=== PATIENT | female | born 1940 | race Caucasian/White ===

== ENCOUNTER 2025-09-12 07:08 | Inpatient (IN) | payer MEDICARE, MEDICAID, SELFPAY ==
[2025-09-12] VITALS (20 sets, daily range): BP systolic 123–194; BP diastolic 41–79; PULSE 67–90; RESP 14–21; TEMP 36.3–37.5; O2SAT 95–99; BMI 21.6
--- NOTE | 2025-09-12 07:33 | EKG_ITS ---
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
--- NOTE | 2025-09-12 07:33 | DI.CT.S_ITS ---
PROCEDURE: CT KIDNEY URETER BLADDER (KUB) INDICATIONS: flank pain, history of hydro and stent TECHNIQUE: Axial sections were acquired from the lung bases to the pubic symphysis. Coronal and sagittal reformats were performed. For radiation dose reduction, the following was used: automated exposure control, adjustment of mA and/or kV according to patient size. COMPARISON: None. FINDINGS: Image quality: Diagnostic. Lower Chest: No significant findings. URINARY: Right Kidney: Severe hydronephrosis. Punctate nonobstructing parenchymal stones. Right Ureter: The renal pelvis is severely dilated. There is a small amount of air present in the renal pelvis. There is inflammatory change in the adjacent fat. The ureter is dilated down to the level of the level of approximately S2-S3, where there is obstruction by a large stone measuring 2.0 x 0.7 x 1.0 cm. It has a Hounsfield measurement of 671. Left Kidney: Punctate nonobstructing stones, the largest of which is approximately 6 x 3 mm. It has a Hounsfield measurement of 457.5. No hydronephrosis. Left Ureter: No hydroureter. Bladder: Normal wall thickness. No stones. ABDOMEN: Liver: No contour-deforming solid mass. Gallbladder: Numerous gallstones are present in the gallbladder. No gallbladder wall thickening. Biliary ducts: No biliary dilation. Pancreas: No ductal dilation. Spleen: Size is within normal limits. Adrenal Glands: No adrenal nodules. Stomach and Bowel: Normal colonic caliber, without significant wall thickening. Severe sigmoid diverticulosis. No CT evidence of acute diverticulitis. Peritoneum: No abnormal intraperitoneal fluid. No free air. Ventral Wall: No hernia. Abdominal Nodes: No enlarged retroperitoneal or mesenteric lymph nodes. Vessels: Aorta and inferior vena cava are normal in size. PELVIS: Pelvic Organs: Uterus is surgically absent. No adnexal masses.. Pelvic Nodes: Unremarkable. Miscellaneous: No inguinal hernias are seen. Bones: Unremarkable. IMPRESSION: 1. A very large distal ureteral stone obstructs the right ureter resulting in severe right hydronephrosis. 2. There is a small amount of gas present in the right renal pelvis, potentially from recent instrumentation. Cannot exclude infection from a gas-forming organism. 3. Bilateral nephrolithiasis. 4. Cholelithiasis. 5. Severe diverticulosis. 6. Remote hysterectomy. Dictated by: Prem Momin M.D. on 09/12/2025 at 8:12 Approved by: Prem Momin M.D. on 09/12/2025 at 8:17
--- NOTE | 2025-09-12 07:36 | ED.FEMALEGU ---
HPI - Female Genitourinary General Chief complaint: Urogenital-Female Stated complaint: per daughter, obstruction of right kidney Time Seen by Provider: 09/12/25 07:24 History of Present Illness HPI Narrative: This is an 85-year-old female with a history of bilateral ureteral stones and hydronephrosis. She gets her urology care down at [facility] by Dr. Silvestre Baldwin. She has had bilateral lithotripsies has a history of right nephrostomy which has been removed and a ureteral stent that was placed 4 days ago. The ureteral stent came out last night. Today the patient is having nausea and vomiting. She is not having fevers she is not having flank pain. Daughter recognizes nausea and vomiting as consistent with previous ureteral obstruction. Patient not having urinary symptoms. The patient's daughter is a medical provider. 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 Breast cancer Surgical History (Updated 09/12/25 @ 14:33 by Yanni Quintero) History of hysterectomy History of lumpectomy Family History (Updated 09/12/25 @ 14:34 by Yanni Quintero) Father Lung cancer Heart attack Mother Stroke Exam Narrative Exam Narrative: Elderly female who is alert appears to be in no distress Normocephalic and atraumatic with dry oral mucosa Lungs are clear Heart sounds are normal Abdomen has normal bowel sounds soft and no CVAT Initial Vital Signs Initial Vital Signs: Vital Signs Pulse Rate 89 09/12/25 07:28 Pulse Oximetry 99 09/12/25 07:28 Course Orders Ordered: ED Orders 09/12/25 07:33 CT kidney ureter bladder (KUB) Stat EKG-12 Lead Stat 09/12/25 07:35 CBC Auto Diff [Complete Blood Count AUTO DIFF] Stat CMP [Comprehensive Metabolic Panel] Stat Lactate (Lactic Acid) Stat Lipase Stat 09/12/25 07:59 Blood Culture Stat 09/12/25 08:27 Consult to Urology Stat UA Complete [Urinalysis and Microscopic] Stat Urine Culture Stat Hydromorphone HCl (Hydromorphone Hcl 0.5 Mg/0.5 Ml Syringe) 0.5 mg IV Q2H PRN PRN Reason: Pain, Severe (7-10) Sodium Chloride (Normal Saline 0.9%) 1,000 mls @ 100 mls/hr IV CONT LUPE Last Admin: 09/12/25 10:16 Dose: 100 mls/hr Documented By: EB Naloxone HCl (Naloxone 0.4 Mg/Ml Vial) 0.2 mg IV Q2MIN PRN PRN Reason: Opiate Reversal Discontinued Medications Benzocaine (Benzocaine/Menthol 1 Gil Pkt) 1 each PO PRN PRN PRN Reason: Sore Throat Famotidine (Famotidine 20 Mg/2 Ml Vial) 20 mg IV NOW ONE Stop: 09/12/25 09:38 Last Admin: 09/12/25 10:50 Dose: 20 mg Documented By: IGOR Fentanyl (Fentanyl 100 Mcg/2 Ml Inj) 0 mcg IV Q5MIN PRN PRN Reason: Pain, Severe (7-10) Hydromorphone HCl (Hydromorphone 1 Mg/Ml Syringe) 0 mg IV Q5MIN PRN PRN Reason: Pain, Mild (1-3) Sodium Chloride (Normal Saline 0.9%) 1,000 mls @ 1,000 mls/hr IV BOLUS ONE Stop: 09/12/25 08:32 Last Infusion: 09/12/25 08:38 Dose: Infused Documented By: Admin: 09/12/25 07:49 Dose: 1,000 mls/hr Documented By: EB Piperacillin Sod/Tazobactam (Sod 4.5 gm/ Sodium Chloride) 100 mls @ 200 mls/hr IV NOW ONE Stop: 09/12/25 08:08 Last Infusion: 09/12/25 09:47 Dose: Infused Documented By: FLAl Admin: 09/12/25 09:10 Dose: 200 mls/hr Documented By: EB Vancomycin HCl/Dextrose (Vancomycin) 1,500 mg in 300 mls @ 200 mls/hr IV NOW ONE Stop: 09/12/25 09:48 Last Infusion: 09/12/25 12:58 Dose: Infused Documented By: Admin: 09/12/25 10:15 Dose: 200 mls/hr Documented By: EB Lactated Ringer's (Lactated Ringers) 1,000 mls @ 42 mls/hr IV CONT LUPE Last Infusion: 09/12/25 12:58 Dose: Infused Documented By: Admin: 09/12/25 10:51 Dose: 42 mls/hr Documented By: BS Acetaminophen (Ofirmev) 1,000 mg in 100 mls @ 400 mls/hr IV NOW ONE Stop: 09/12/25 09:51 Last Admin: 09/12/25 12:58 Dose: Not Given Documented By: LDV Acetaminophen (Ofirmev) 1,000 mg in 100 mls @ 400 mls/hr IV NOW ONE Stop: 09/12/25 11:14 Last Infusion: 09/12/25 12:51 Dose: Infused Documented By: Admin: 09/12/25 10:50 Dose: 400 mls/hr Documented By: BS Iopamidol (Iopamidol 30 Ml Vial) 10 ml INTRAURETH NOW ONE Stop: 09/12/25 10:47 Last Admin: 09/12/25 11:34 Dose: 10 ml Documented By: BB Ondansetron HCl (Ondansetron 4 Mg/2 Ml Inj) 4 mg IV NOW ONE Stop: 09/12/25 07:36 Last Admin: 09/12/25 07:50 Dose: 4 mg Documented By: EB Ondansetron HCl (Ondansetron 4 Mg/2 Ml Inj) 4 mg IV NOW PRN PRN Reason: Nausea And Vomiting Oxycodone HCl (Oxycodone Ir 5 Mg Tablet) 5 mg PO PACUNOW PRN PRN Reason: Mild or moderate pain Vancomycin HCl (Vancomycin Per Pharmacy) 1 request MISC NOW PRN PRN Reason: protocol Reevaluation(s) Reevaluation #1: At 9:30 a.m., daughter is in the room with the patient. I reviewed CT findings and concern for infection and need for a stent. Patient prefers to have this done here as opposed to going back to [place]. Patient agrees with the admission, she has been NPO today. Patient and daughter report that she is DNR Consultations Consultation #1: Case discussed with Urology, Dr. Sanchez, planning a repeat stent, will do this later today Consultation #2: Discussed with hospitalist, Dr. Mares accepts admission Vital Signs Vital signs: Vital Signs - 8 hr 09/12/25 08:30 09/12/25 08:30 Pulse Rate 87 Blood Pressure 173/72 H Pulse Oximetry 98 MDM - Female Genitourinary Lab Data Lab results narrative: She has a mild leukocytosis. Lactic acid normal. Creatinine is normal, urinalysis shows evidence of infection with pyuria present 09/12/25 07:35 09/12/25 07:35 Labs: Lab Results 09/12/25 09/12/25 Range/Units 07:35 08:27 WBC 15.1 H (4.5-11.0) X10^3/uL RBC 3.92 L (4.0-5.2) X10^6/uL Hgb 11.9 L (12.0-16.0) g/dL Hct 35.8 L (36-46) % MCV 91.4 (80-100) fL MCH 30.4 (26-34) PG MCHC 33.2 (30-36) % RDW 15.0 H (11.6-14.8) % Plt Count 486 H (150-400) X10^3/uL Neut % (Auto) 81.5 H (50-75) % Lymph % (Auto) 10.8 L (25-40) % [place] % (Auto) 5.4 (3-14) % Eos % (Auto) 1.3 L (2-4) % Baso % (Auto) 1.0 (0-2) % Neut # (Auto) 66782 H (6922-3665) /uL Lymph # (Auto) 1600 (7955-1696) /uL [place] # (Auto) 800 (0-900) /uL Eos # (Auto) 200 (0-450) /uL Baso # (Auto) 200 H (0-100) /uL Sodium 139 (137-145) mmol/L Potassium 3.7 (3.4-5.1) mmol/L Chloride 101 (98-107) mmol/L Carbon Dioxide 28 (22-32) mmol/L BUN 14 (7-17) mg/dL Creatinine 1.00 (0.52-1.04) mg/dL Estimated GFR 55 L (>60) mL/min BUN/Creatinine Ratio 14.0 (6-22) Glucose 132 H (70-99) mg/dL Lactate 1.5 (0.7-2.1) mmol/L Calcium 10.1 (8.4-10.2) mg/dL Total Bilirubin 0.9 (0.2-1.3) mg/dL AST 31 (14-36) IU/L ALT 21 (<35) IU/L Alkaline Phosphatase 129 H (38-126) U/L Total Protein 7.5 (6.3-8.2) g/dL Albumin 3.6 (3.5-5.0) g/dL Globulin 3.9 (1.7-4.1) g/dL Albumin/Globulin Ratio 0.9 L (1.0-2.8) Lipase 54 (23-300) U/L Urine Color Yellow Urine Appearance Clear Urine pH 7.5 (4.5-8.0) Ur Specific [place] 1.015 (1.000-1.035) Urine Protein Negative (Negative) Urine Glucose (UA) Negative (Negative) g/dL Urine Ketones Negative (NEGATIVE) Urine Occult Blood Trace-intact (Negative) Urine Nitrate Negative (Negative) Urine Bilirubin Negative (NEGATIVE) Urine Urobilinogen 0.2 (0.2) E.U./dL Ur Leukocyte Esterase Trace H (NEGATIVE) Urine RBC 0-1/hpf (0-5/HPF) Urine WBC 5-10/hpf H (0-5/HPF) Ur Squamous Epith Cells 0-1 /hpf (0-5/HPF) Urine Bacteria Few (2-10) H (None) Ur Culture Indicated? Specimen cultured Vol Urine Centrifuged 10ml (spun) Imaging Data CT scan - abdomen/pelvis: My Impression: CT KUB shows right hydronephrosis and a large stone in the distal right ureter Radiologist's Impression: [place] [address] CT Scan Report Signed Patient: Vidya Turner MR#: [id number] : 1940 Acct:[id number] Age/Sex: 85 / F Date of Service: 09/12/25 Loc: ED Accession Number: [id number] Procedure: CT kidney ureter bladder (KUB) Ordering Provider: Foster Lantigua MD PROCEDURE: CT KIDNEY URETER BLADDER (KUB) INDICATIONS: flank pain, history of hydro and stent TECHNIQUE: Axial sections were acquired from the lung bases to the pubic symphysis. Coronal and sagittal reformats were performed. For radiation dose reduction, the following was used: automated exposure control, adjustment of mA and/or kV according to patient size. COMPARISON: None. FINDINGS: Image quality: Diagnostic. Lower Chest: No significant findings. URINARY: Right Kidney: Severe hydronephrosis. Punctate nonobstructing parenchymal stones. Right Ureter: The renal pelvis is severely dilated. There is a small amount of air present in the renal pelvis. There is inflammatory change in the adjacent fat. The ureter is dilated down to the level of the level of approximately S2-S3, where there is obstruction by a large stone measuring 2.0 x 0.7 x 1.0 cm. It has a Hounsfield measurement of 671. Left Kidney: Punctate nonobstructing stones, the largest of which is approximately 6 x 3 mm. It has a Hounsfield measurement of 457.5. No hydronephrosis. Left Ureter: No hydroureter. Bladder: Normal wall thickness. No stones. ABDOMEN: Liver: No contour-deforming solid mass. Gallbladder: Numerous gallstones are present in the gallbladder. No gallbladder wall thickening. Biliary ducts: No biliary dilation. Pancreas: No ductal dilation. Spleen: Size is within normal limits. Adrenal Glands: No adrenal nodules. Stomach and Bowel: Normal colonic caliber, without significant wall thickening. Severe sigmoid diverticulosis. No CT evidence of acute diverticulitis. Peritoneum: No abnormal intraperitoneal fluid. No free air. Ventral Wall: No hernia. Abdominal Nodes: No enlarged retroperitoneal or mesenteric lymph nodes. Vessels: Aorta and inferior vena cava are normal in size. PELVIS: Pelvic Organs: Uterus is surgically absent. No adnexal masses.. Pelvic Nodes: Unremarkable. Miscellaneous: No inguinal hernias are seen. Bones: Unremarkable. IMPRESSION: 1. A very large distal ureteral stone obstructs the right ureter resulting in severe right hydronephrosis. 2. There is a small amount of gas present in the right renal pelvis, potentially from recent instrumentation. Cannot exclude infection from a gas-forming organism. 3. Bilateral nephrolithiasis. 4. Cholelithiasis. 5. Severe diverticulosis. 6. Remote hysterectomy. Dictated by: Prem Momin M.D. on 09/12/2025 at 8:12 Approved by: Prem Momin M.D. on 09/12/2025 at 8:17 ECG Data Attestation: I personally reviewed and interpreted this ECG as follows: (Normal sinus rhythm at 91 normal QRS duration normal QTC no acute ST segment changes, right bundle-branch) MDM Narrative Medical decision making narrative: 85-year-old female with ureteral stones and hydronephrosis recently had a right ureteral stent. Stent has come out, have persistent hydronephrosis and ureteral obstruction from a stone. She also has evidence of infection with pyuria and leukocytosis. Patient is nontoxic appearing at present, she was started on Zosyn and vancomycin urology was consulted and will see the patient shortly she will be admitted to the hospitalist service. Discharge Plan Departure Patient Disposition: Admitted As Inpatient Clinical Impression: Hydroureter with obstruction Urinary tract infection Qualifiers: Urinary tract infection type: site unspecified Hematuria presence: without hematuria Qualified Code(s): N39.0 - Urinary tract infection, site not specified Admit Date/Time: 09/12/25 08:43 Admit Provider: Dionicio Workman
[2025-09-12 07:43] LABS: Add Manual Diff / Slide Review NO; Hematocrit 35.8 % (36-46); Hemoglobin 11.9 g/dL (12.0-16.0); Lymphocytes Absolute Auto 1600 /uL (1100-4500); Mean Corpuscular HGB Conc 33.2 % (30-36); Mean Corpuscular Hemoglobin 30.4 PG (26-34); Mean Corpuscular Volume 91.4 fL (80-100); Platelet Count 486 X10^3/uL (150-400)
[2025-09-12] MEDS: SODIUM CHLORIDE 0.9% 1,000 ML 1000 ML IV (07:49)
[2025-09-12] MEDS: ONDANSETRON 4 MG/2 ML INJ IV (07:50)
[2025-09-12 07:58] LABS: Alanine Aminotransferase 21 IU/L (<35); Albumin 3.6 g/dL (3.5-5.0); Albumin Globulin Ratio 0.9 (1.0-2.8); Alkaline Phosphatase 129 U/L (38-126); Blood Urea Nitrogen 14 mg/dL (7-17); Calcium 10.1 mg/dL (8.4-10.2); Carbon Dioxide 28 mmol/L (22-32); Chloride 101 mmol/L (98-107); Estimated Glomerular Filt Rate 55 mL/min (>60); Globulin 3.9 g/dL (1.7-4.1); Glucose 132 mg/dL (70-99); HEMOLYSIS < 15 (0-50); Lipase 54 U/L (23-300); Potassium 3.7 mmol/L (3.4-5.1); Sodium 139 mmol/L (137-145); Total Protein 7.5 g/dL (6.3-8.2)
[2025-09-12 08:09] LABS: Lactate (Lactic Acid) 1.5 mmol/L (0.7-2.1)
[2025-09-12 08:34] LABS: Appearance Urine UA CLEAR; Bilirubin Urine UA NEGATIVE (NEGATIVE); Color Urine UA YELLOW; Glucose Urine UA NEGATIVE (Negative); Ketones Urine UA NEGATIVE (NEGATIVE); Leukocyte Esterase Urine UA TRACE (NEGATIVE); Nitrite Urine UA NEGATIVE (Negative); Occult Blood Urine UA TRACE-INTACT (Negative); Protein Urine UA NEGATIVE (Negative); Specific Gravity Urine UA 1.015 (1.000-1.035); Urobilinogen Urine UA 0.2 E.U./dL (0.2); pH Urine UA 7.5 (4.5-8.0)
[2025-09-12 08:46] LABS: Culture Indicated Urine Specimen Cultured
[2025-09-12] MEDS: PIPERACILLIN/TAZO 4.5 GM in SODIUM CHLORIDE 0.9% 100 ML IV (09:10)
--- NOTE | 2025-09-12 09:11 | P.HP_ITS ---
History of Present Illness <Dionicio Workman MD - Last Filed: 09/12/25 16:38> History of Present Illness Chief complaint: per daughter, obstruction of right kidney Narrative: CC: Nausea, vomiting, and concern for urinary obstruction ? HPI:? ? This is an 85-year-old female with a history of bilateral nephrolithiasis, chronic bilateral hydronephrosis, and prior ureteral stent placement, who presented to the ED with nausea and vomiting. She was afebrile and hemodynamically stable. CT KUB demonstrated a 2 cm distal right ureteral stone with resultant upstream severe hydronephrosis. She gets her urology care at [facility] by Dr. Silvestre Baldwin. She has had bilateral lithotripsies has a history of right nephrostomy which has been removed and a ureteral stent that was placed 4 days ago. The ureteral stent came out last night. Today the patient is having nausea and vomiting. Urology was consulted, and the patient underwent cystoscopy with right ureteral stent exchange and bladder decompression. She was then admitted post-operatively to the floor in stable condition for monitoring, continued management, and evaluation for definitive outpatient urologic care. ? History collected from patient's daughter Cynthia Méndez: This spring the patient started having nausea and weight loss causing concern for her daughter, who is a family medicine physician. She developed post prandial discomfort in June but declined to seek care. In early July she went to the ER at [facility] where she was discovered to have bilateral obstructing stones at 2 and 3 cm respectively. She had bilateral stents placed while awaiting laser ablation. The left stone was ablated in early August, then two weeks later the right stone was ablated. She continued to have severe nausea after the right ablation lasting until 09/05 when she was brought by EMS to the [facility] ED. She was found to have 8cm steinstrasse obstructing the right ureter. On 09/05 a nephrostomy was placed until ablation could be completed 09/09. The patient was discharged 09/10 and brought to [place] to stay with her daughter for recovery. The stent was accidentally removed on 09/11. On 09/12 the patient developed nausea and vomiting, which are her typical symptoms of ureteral obstruction, so she was brought to [facility] emergency room. ? 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 Surgical Hx: Hysterectomy, remote Lumpectomy ~2015 Cystoscopy, multiple Ureteral stent x4 Ureteral stone ablation x3 ? Medications: metoprolol 25mg, timolol eye drop Allergies: NKDA Social Hx: She lives alone in [place], no pets. 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 Social drinking. No other substance use reported. Family Hx:? Mother: Stroke, Father: [place], lung cancer ? ROS: negative other than as noted in HPI ? Imaging/EC/11 CT KIDNEY URETER BLADDER (KUB) IMPRESSION: 1. A very large distal ureteral stone obstructs the right ureter resulting in severe right hydronephrosis. 2. There is a small amount of gas present in the right renal pelvis, potentially from recent instrumentation. Cannot exclude infection from a gas-forming organism. 3. Bilateral nephrolithiasis. 4. Cholelithiasis. 5. Severe diverticulosis. 6. Remote hysterectomy. ? 09/12 ECG Interpretive Statements: Normal sinus rhythm Possible Left atrial enlargement Right bundle branch block ? Labs reviewed and notable for: -Blood culture and urine culture pending -High: WBC (15.1), platelets (486), BUN (26), BUN/Creatinine Ratio (21), Alkaline Phosphatase (138) -Low: Hemoglobin (11.9), lymphocytes % (10.8%), eGFR (55) -UA with trace LE, few (2-10) bacteria, WBC (5-10) ? Vitals reviewed and notable for: BP: 192/79, 173/72, 168/74, 153/71, 167/71, 156/74, 154/72, 150/77, 148/77. Other vitals WNL ? Physical Exam: GEN: Alert and oriented X4. No acute distress. Fluent speech. EYES: PERRLA, EOMI. HENT: Moist mucus membranes, no conjunctival injection or icterus. RESP: CTAB, unlabored breathing, no cyanosis appreciated. CV: No peripheral edema, unremarkable heart rate and rhythm. ABD: Soft, non-tender, non-distended, no palpable masses. EXT: No edema, clubbing or cyanosis. SKIN: No rashes or lesions. NEURO: No focal neurologic deficits, CN II-XII grossly intact. PSYCH: Cooperative, appropriate mood and affect. ? A/P: 85-year-old female with bilateral nephrolithiasis and chronic hydronephrosis presenting with nausea and vomiting following spontaneous ureteral stent dislodgement. CT imaging confirms 2 cm distal right ureteral stone with severe hydronephrosis. Patient underwent successful cystoscopy with right ureteral stent exchange and bladder decompression. She is now admitted for continued management and evaluation for definitive outpatient urologic care. ? #Ureteral Obstruction with Hydronephrosis Large 2 cm distal right ureteral stone causing severe hydronephrosis following stent dislodgement. Stent displacement occurs in 2.8% of cases with stents. Successful stent exchange performed to restore drainage. -Monitor urine output -Hydromorphone 0.5 mg IV Q2 PRN for pain management -Post-operative monitoring -Discharge planning with urology follow-up, patient and daughter indicate they prefer outpatient care with [facility] Urology ? #Hypertension Elevated blood pressures ranging 148-192 mmHg systolic. Currently on metoprolol 25mg. -Monitor blood pressure trends -Continue metoprolol 25mg ? DVT Prophylaxis: -SCDs ? Code Status: -DNR/DNI ? Disposition: Likely discharge to daughter's home tomorrow AJ Additional: No additional information to add to this note. The patient was doing well and anticipate discharge tomorrow. We will follow cultures. <Yanni Quintero - Last Filed: 09/12/25 15:05> History of Present Illness Narrative: CC: Nausea, vomiting, and concern for urinary obstruction ? HPI:? ? This is an 85-year-old female with a history of bilateral nephrolithiasis, chronic bilateral hydronephrosis, and prior ureteral stent placement, who presented to the ED with nausea and vomiting. She was afebrile and hemodynamically stable. CT KUB demonstrated a 2 cm distal right ureteral stone with resultant upstream severe hydronephrosis. She gets her urology care at [facility] by Dr. Silvestre Baldwin. She has had bilateral lithotripsies has a history of right nephrostomy which has been removed and a ureteral stent that was placed 4 days ago. The ureteral stent came out last night. Today the patient is having nausea and vomiting. Urology was consulted, and the patient underwent cystoscopy with right ureteral stent exchange and bladder decompression. She was then admitted post-operatively to the floor in stable condition for monitoring, continued management, and evaluation for definitive outpatient urologic care. ? History collected from patient's daughter Cynthia Méndez: This spring the patient started having nausea and weight loss causing concern for her daughter, who is a family medicine physician. She developed post prandial discomfort in June but declined to seek care. In early July she went to the ER at [facility] where she was discovered to have bilateral obstructing stones at 2 and 3 cm respectively. She had bilateral stents placed while awaiting laser ablation. The left stone was ablated in early August, then two weeks later the right stone was ablated. She continued to have severe nausea after the right ablation lasting until 09/05 when she was brought by EMS to the [facility] ED. She was found to have 8cm steinstrasse obstructing the right ureter. On 09/05 a nephrostomy was placed until ablation could be completed 09/09. The patient was discharged 09/10 and brought to [place] to stay with her daughter for recovery. The stent was accidentally removed on 09/11. On 09/12 the patient developed nausea and vomiting, which are her typical symptoms of ureteral obstruction, so she was brought to [facility] emergency room. ? 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 Surgical Hx: Hysterectomy, remote Lumpectomy ~2014 Cystoscopy, multiple Ureteral stent x4 Ureteral stone ablation x3 ? Medications: metoprolol 25mg, timolol eye drop Allergies: NKDA Social Hx: She lives alone in [place], no pets. 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 Social drinking. No other substance use reported. Family Hx:? Mother: Stroke, Father: [place], lung cancer ? ROS: negative other than as noted in HPI ? Imaging/EC/11 CT KIDNEY URETER BLADDER (KUB) IMPRESSION: 1. A very large distal ureteral stone obstructs the right ureter resulting in severe right hydronephrosis. 2. There is a small amount of gas present in the right renal pelvis, potentially from recent instrumentation. Cannot exclude infection from a gas-forming organism. 3. Bilateral nephrolithiasis. 4. Cholelithiasis. 5. Severe diverticulosis. 6. Remote hysterectomy. ? 09/12 ECG Interpretive Statements: Normal sinus rhythm Possible Left atrial enlargement Right bundle branch block ? Labs reviewed and notable for: -Blood culture and urine culture pending -High: WBC (15.1), platelets (486), BUN (26), BUN/Creatinine Ratio (21), Alkaline Phosphatase (138) -Low: Hemoglobin (11.9), lymphocytes % (10.8%), eGFR (55) -UA with trace LE, few (2-10) bacteria, WBC (5-10) ? Vitals reviewed and notable for: BP: 192/79, 173/72, 168/74, 153/71, 167/71, 156/74, 154/72, 150/77, 148/77. Other vitals WNL ? Physical Exam: GEN: Alert and oriented X4. No acute distress. Fluent speech. EYES: PERRLA, EOMI. HENT: Moist mucus membranes, no conjunctival injection or icterus. RESP: CTAB, unlabored breathing, no cyanosis appreciated. CV: No peripheral edema, unremarkable heart rate and rhythm. ABD: Soft, non-tender, non-distended, no palpable masses. EXT: No edema, clubbing or cyanosis. SKIN: No rashes or lesions. NEURO: No focal neurologic deficits, CN II-XII grossly intact. PSYCH: Cooperative, appropriate mood and affect. ? A/P: 85-year-old female with bilateral nephrolithiasis and chronic hydronephrosis presenting with nausea and vomiting following spontaneous ureteral stent dislodgement. CT imaging confirms 2 cm distal right ureteral stone with severe hydronephrosis. Patient underwent successful cystoscopy with right ureteral stent exchange and bladder decompression. She is now admitted for continued management and evaluation for definitive outpatient urologic care. ? #Ureteral Obstruction with Hydronephrosis Large 2 cm distal right ureteral stone causing severe hydronephrosis following stent dislodgement. Stent displacement occurs in 2.8% of cases with stents. Successful stent exchange performed to restore drainage. -Monitor urine output -Hydromorphone 0.5 mg IV Q2 PRN for pain management -Post-operative monitoring -Discharge planning with urology follow-up, patient and daughter indicate they prefer outpatient care with [facility] Urology ? #Hypertension Elevated blood pressures ranging 148-192 mmHg systolic. Currently on metoprolol 25mg. -Monitor blood pressure trends -Continue metoprolol 25mg ? DVT Prophylaxis: -SCDs ? Code Status: -DNR/DNI ? 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 Breast cancer Surgical History (Updated 09/12/25 @ 14:33 by Yanni Quintero) History of hysterectomy History of lumpectomy Family History (Updated 09/12/25 @ 14:34 by Yanni Quintero) Father Lung cancer Heart attack Mother Stroke Social History (Updated 09/12/25 @ 14:36 by Yanni Quintero) household members: none lives independently: Yes pets and animals: No Smoking Status: Former smoker Meds <Dionicio Workman MD - Last Filed: 09/12/25 16:38> Home Medications and Allergies Home Medications ?Medication ?Instructions ?Recorded ?Confirmed ?Type metoprolol succinate 25 mg 25 mg PO DAILY 09/12/2509/26 History tablet,extended release 24 hr timolol maleate 0.5 % eye drops drp EYE-BOTH 09/12/25 History Allergies Allergy/AdvReac Type Severity Reaction Status Date / Time No Known Drug Allergies Allergy Verified 09/12/25 10:34 Exam <Dionicio Workman MD - Last Filed: 09/12/25 16:38> Vital Signs (past 8 hours): - 09/12/25 07:28 09/12/25 07:30 09/12/25 07:37 Temperature 97.5 F L Pulse Rate 89 90 86 Respiratory Rate 18 Blood Pressure 194/79 H Pulse Oximetry 99 99 99 Oxygen Delivery Method Room Air 09/12/25 07:50 09/12/25 07:50 09/12/25 08:00 Temperature Pulse Rate 84 83 Respiratory Rate Blood Pressure 190/79 H Pulse Oximetry 98 99 Oxygen Delivery Method 09/12/25 08:00 Temperature Pulse Rate Respiratory Rate Blood Pressure 192/79 H Pulse Oximetry Oxygen Delivery Method Oxygen Delivery Method Room Air Objective <Dionicio Workman MD - Last Filed: 09/12/25 16:38> Labs 09/12/25 07:35 09/12/25 07:35 Labs: Laboratory Results - last 24 hr 09/12/25 09/12/25 07:35 08:27 WBC 15.1 H RBC 3.92 L Hgb 11.9 L Hct 35.8 L MCV 91.4 MCH 30.4 MCHC 33.2 RDW 15.0 H Plt Count 486 H Neut % (Auto) 81.5 H Lymph % (Auto) 10.8 L [place] % (Auto) 5.4 Eos % (Auto) 1.3 L Baso % (Auto) 1.0 Neut # (Auto) 98790 H Lymph # (Auto) 1600 [place] # (Auto) 800 Eos # (Auto) 200 Baso # (Auto) 200 H Sodium 139 Potassium 3.7 Chloride 101 Carbon Dioxide 28 BUN 14 Creatinine 1.00 Estimated GFR 55 L BUN/Creatinine Ratio 14.0 Glucose 132 H Lactate 1.5 Calcium 10.1 Total Bilirubin 0.9 AST 31 ALT 21 Alkaline Phosphatase 129 H Total Protein 7.5 Albumin 3.6 Globulin 3.9 Albumin/Globulin Ratio 0.9 L Lipase 54 Urine Color Yellow Urine Appearance Clear Urine pH 7.5 Ur Specific [place] 1.015 Urine Protein Negative Urine Glucose (UA) Negative Urine Ketones Negative Urine Occult Blood Trace-intact Urine Nitrate Negative Urine Bilirubin Negative Urine Urobilinogen 0.2 Ur Leukocyte Esterase Trace H Urine RBC 0-1/hpf Urine WBC 5-10/hpf H Ur Squamous Epith Cells 0-1 /hpf Urine Bacteria Few (2-10) H Ur Culture Indicated? Specimen cultured Vol Urine Centrifuged 10ml (spun) Assessment & Plan <Dionicio Workman MD - Last Filed: 09/12/25 16:38> Time-Based Coding :: 35 min spent with patient and on the chart (including review of chart, obtaining history, exam, reviewing outside data, placing orders, documenting exam and treatment plan, and counseling patient) on 09/12. Quality <Dionicio Workman MD - Last Filed: 09/12/25 16:38> MIPS - Admit I confirm the patient?s Advance Care Plan is present, Code status is documented, Surrogate decision maker is in patient?s record [If Yes, STOP here]: Yes MIPS - Meds 'Current medications' to include all prescriptions, [id number] products, herbals, cannabis/cannabidiol products, and vitamin/mineral/dietary (nutritional) supplements. I have utilized all available resources to obtain, update, or review the patient?s current medications. [If Yes, STOP here]: Yes
[2025-09-12] MEDS: VANCOMYCIN 1,500 MG/300 ML PIGGYBACK 200 MG IV (10:15)
[2025-09-12] MEDS: SODIUM CHLORIDE 0.9% 1,000 ML 100 ML IV (10:16)
--- NOTE | 2025-09-12 10:38 | P.CONS_ITS ---
History of Present Illness Consult details Date Patient Seen: 09/12/25 Time Patient Seen: 10:38 Chief complaint: per daughter, obstruction of right kidney Reason for consult: Severe right hydroureteronephrosis, right ureteral stone, UTI Narrative: 85 y/o F brought into ER by daughter for evaluation of nausea/vomiting. Of note, she recently underwent bilateral urolithiasis management at [facility] in [place], [place] (do not have any of these records, unsure if this was URS or ESWL). Nevertheless, she admits to a history of a right nephrostomy tube within the last month as well as a right ureteral stent placement. The stent was left on strings and was inadvertently removed early. Her daughter felt that her symptoms were similar to prior episodes of ureteral obstruction and brought her into ER for further evaluation. This was notable for a WBC of 15.1, sCr of 1 and a UA consistent with either recent Urological instrumentation or concern for a UTI. Her CT KUB was notable for a 2cm distal right ureterolith with resultant upstream severe hydroureteronephrosis and gas within her right renal pelvis. Urology was consulted for further management. Meds Home Medications and Allergies Home Medications ?Medication ?Instructions ?Recorded ?Confirmed ?Type timolol maleate 0.5 % eye drops drp EYE-BOTH 09/12/25 History Allergies Allergy/AdvReac Type Severity Reaction Status Date / Time No Known Drug Allergies Allergy Verified 09/12/25 10:34 Review of Systems Review of Systems Narrative: A complete ROS was completed with all pertinent positives and negatives documented in HPI. All other systems were reviewed and are negative. Exam Vital Signs (past 8 hours): - 09/12/25 07:28 09/12/25 07:30 09/12/25 07:37 Temperature 97.5 F L Pulse Rate 89 90 86 Respiratory Rate 18 Blood Pressure 194/79 H Pulse Oximetry 99 99 99 Oxygen Delivery Method Room Air 09/12/25 07:50 09/12/25 07:50 09/12/25 08:00 Temperature Pulse Rate 84 83 Respiratory Rate Blood Pressure 190/79 H Pulse Oximetry 98 99 Oxygen Delivery Method 09/12/25 08:00 09/12/25 08:30 09/12/25 08:30 Temperature Pulse Rate 87 Respiratory Rate Blood Pressure 192/79 H 173/72 H Pulse Oximetry 98 Oxygen Delivery Method 09/12/25 09:00 09/12/25 09:00 09/12/25 09:30 Temperature Pulse Rate 81 Respiratory Rate 21 Blood Pressure 168/74 H 153/71 H Pulse Oximetry Oxygen Delivery Method 09/12/25 09:30 09/12/25 10:00 09/12/25 10:00 Temperature Pulse Rate 82 80 Respiratory Rate 21 20 Blood Pressure 167/71 H Pulse Oximetry 97 95 Oxygen Delivery Method Oxygen Delivery Method Room Air Narrative Exam Narrative: GEN: Alert and oriented X3. No acute distress. Well-nourished. EYES: PERRLA, EOMI. HENT: Moist mucus membranes, no scleral icterus, normal neck ROM. RESP: Unlabored breathing, equal rise and fall of chest bilaterally, no cyanosis appreciated. CV: No peripheral edema, unremarkable heart rate. ABD: Soft, non-tender, non-distended, no palpable masses. EXT: No edema, clubbing or cyanosis. SKIN: No rashes or lesions. NEURO: No focal neurologic deficits, CN II-XII grossly intact. PSYCH: Cooperative, appropriate mood and affect. Objective Labs 09/12/25 07:35 09/12/25 07:35 Labs: Laboratory Results - last 24 hr 09/12/25 09/12/25 07:35 08:27 WBC 15.1 H RBC 3.92 L Hgb 11.9 L Hct 35.8 L MCV 91.4 MCH 30.4 MCHC 33.2 RDW 15.0 H Plt Count 486 H Neut % (Auto) 81.5 H Lymph % (Auto) 10.8 L [place] % (Auto) 5.4 Eos % (Auto) 1.3 L Baso % (Auto) 1.0 Neut # (Auto) 09914 H Lymph # (Auto) 1600 [place] # (Auto) 800 Eos # (Auto) 200 Baso # (Auto) 200 H Sodium 139 Potassium 3.7 Chloride 101 Carbon Dioxide 28 BUN 14 Creatinine 1.00 Estimated GFR 55 L BUN/Creatinine Ratio 14.0 Glucose 132 H Lactate 1.5 Calcium 10.1 Total Bilirubin 0.9 AST 31 ALT 21 Alkaline Phosphatase 129 H Total Protein 7.5 Albumin 3.6 Globulin 3.9 Albumin/Globulin Ratio 0.9 L Lipase 54 Urine Color Yellow Urine Appearance Clear Urine pH 7.5 Ur Specific [place] 1.015 Urine Protein Negative Urine Glucose (UA) Negative Urine Ketones Negative Urine Occult Blood Trace-intact Urine Nitrate Negative Urine Bilirubin Negative Urine Urobilinogen 0.2 Ur Leukocyte Esterase Trace H Urine RBC 0-1/hpf Urine WBC 5-10/hpf H Ur Squamous Epith Cells 0-1 /hpf Urine Bacteria Few (2-10) H Ur Culture Indicated? Specimen cultured Vol Urine Centrifuged 10ml (spun) Assessment & Plan Assessment and plan (1) Right ureteral calculus: Status: Acute Plan: 85 y/o F w/ h/o nephrolithiasis and recent Urological surgeries for management of her urolithiasis (this was performed at [facility] in [place], [place], do not have any of these records, not sure if URS or ESWL). Nevertheless, her right ureteral stent with strings was inadvertently removed early and she developed severe nausea/vomiting. She was brought to ER for evaluation by her daughter. This was notable for a WBC of 15.1, sCr of 1 and a UA consistent with either recent Urological instrumentation or concern for a UTI. Her CT KUB was notable for a 2cm distal right ureterolith with resultant upstream severe hydroureteronephrosis and gas within her right renal pelvis. Discussed the need for an urgent cystoscopy with right ureteral stent placement. Discussed risks of the procedure to include but not limited to pain, bleeding, infection, injury to urethra/bladder/ureter, inability to access the ureter requiring discussion with Interventional Radiology regarding a possible ureteral stent placement in an antegrade fashion vs a possible nephroureteral stent and/or percutaneous nephrostomy tube, urinary tract infection, need for emergent open repair of bladder and/or ureter. She indicated understanding and informed consent was obtained. - Appreciate assistance of hospitalist team in management of this patient - Will need to have stent remain for 2-3 weeks prior to returning to OR for a cystoscopy with right ureteroscopy, laser lithotripsy and right ureteral stent placement (may be performed at [facility] per patient's wishes) (2) Hydroureteronephrosis: Status: Acute Plan: Please see plan above (3) Urinary tract infection: Qualifiers: Hematuria presence: without hematuria Urinary tract infection type: s ite unspecified Qualified Code(s): N39.0 - Urinary tract infection, site not specified Status: Acute Plan: Please see plan above Time-Based Coding :: [TOTAL MINUTES] spent with patient and on the chart (including review of chart, obtaining history, exam, reviewing outside data, placing orders, documenting exam and treatment plan, and counseling patient) on [DATE]. PROFEE Charge Codes Inpatient or Observation consultation: [id number]
--- NOTE | 2025-09-12 10:44 | SUR.OPER ---
Lithotomy on padded OR bed, head on pillow, arms secured on padded arm boards at <90 degrees abduction. Legs secured in padded yellow fins stirrups. FINAL POSITIONING APPROVED BY PROVIDER
[2025-09-12] MEDS: ACETAMINOPHEN IV 1,000 MG/100 ML VIAL 400 MG IV (10:50)
[2025-09-12] MEDS: FAMOTIDINE 20 MG/2 ML VIAL IV (10:50)
[2025-09-12] MEDS: LACTATED RINGERS 1,000 ML 42 ML IV (10:51)
--- NOTE | 2025-09-12 11:59 | DI.RAD.S_ITS ---
PROCEDURE: XR ABDOMEN 1V INDICATIONS: RIGHT STENT PLACEMENT TECHNIQUE: 2 intra-operative images acquired by the Urology service. COMPARISON: [facility], CT, CT KIDNEY URETER BLADDER (KUB), 09/12/2025, 7:46. FINDINGS: Intraoperative fluoroscopic images shows presence of a right-sided ureteral stent. Moderate contrast distension of right renal collecting system is also seen. IMPRESSION: Fluoro guidance was provided intraoperatively for right-sided ureteral stent placement performed by ordering clinician. Dictated by: Miles Martinez M.D. on 09/12/2025 at 12:12 Approved by: Miles Martinez M.D. on 09/12/2025 at 12:13
--- NOTE | 2025-09-12 12:02 | P.OP_ITS ---
Operative Date/Time/Diagnoses Date of procedure: 09/12/25 Time of procedure: :25 Pre-op diagnosis: Right ureteral stone, urinary tract infection Post-op diagnosis: same Procedure & Clinicians Procedure: Cystoscopy Right retrograde ureteropyelogram Right ureteral stent placement Same procedure(s) as scheduled: Yes Indications: 85 y/o F w/ h/o nephrolithiasis and recent Urological surgeries for management of her urolithiasis (this was performed at [facility] in [place], [place], do not have any of these records, not sure if URS or ESWL). Nevertheless, her right ureteral stent with strings was inadvertently removed early and she developed severe nausea/vomiting. She was brought to ER for evaluation by her daughter. This was notable for a WBC of 15.1, sCr of 1 and a UA consistent with either recent Urological instrumentation or concern for a UTI. Her CT KUB was notable for a 2cm distal right ureterolith with resultant upstream severe hydroureteronephrosis and gas within her right renal pelvis. Discussed the need for an urgent cystoscopy with right ureteral stent placement. Discussed risks of the procedure to include but not limited to pain, bleeding, infection, injury to urethra/bladder/ureter, inability to access the ureter requiring discussion with Interventional Radiology regarding a possible ureteral stent placement in an antegrade fashion vs a possible nephroureteral stent and/or percutaneous nephrostomy tube, urinary tract infection, need for emergent open repair of bladder and/or ureter. She indicated understanding and informed consent was obtained. Surgeon: Anthony Sanchez Assisted?: No Anesthesia Type: General Operative Notes Findings: Very large distal right ureterolith with resultant upstream severe hydroureteronephrosis Closure Type: not applicable Specimen(s): none sent Applied: catheter Estimated Blood Loss (mL): 2 Blood products transfused: none Procedure in detail: Patient was identified in the preoperative holding area and consent confirmed. She was then brought to the operating room where general anesthesia was induced.? She was then placed in the low lithotomy position. She was then prepped and draped in the usual sterile fashion. A surgical timeout was conducted and all were in agreement. Access to the bladder was obtained via a 21Fr cystoscope.? Cloudy urine was immediately noted within the bladder.? The right ureteral orifice was easily visualized and a 0.035 sensor tip ureteral guidewire was advanced through the 5Fr ureteral catheter and into the right renal collecting system.? The ureteral guidewire was removed and a retrograde pyelogram was performed which noted severe right hydronephrosis.? The ureteral guidewire was readvanced through the ureteral catheter and into the right renal pelvis.? The ureteral catheter was then removed.? A 6Fr multi-length JJ ureteral stent without strings was then advanced over the ureteral guidewire and into the right renal collecting system.? Upon removal of the ureteral guidewire, a good curl was appreciated within the right renal pelvis upon fluoroscopy and visually within the bladder.? The bladder was then drained and the cystoscope was removed.? Anesthesia was reversed, she was extubated in the OR and transferred to the PACU in stable condition for recovery. Complications: none Post-operative Condition: stable Disposition: Acute Care Plan for aftercare: Transfer back to Acute Care with the hospitalist service. Will need definitive stone management either with [facility] or [facility].
--- NOTE | 2025-09-12 23:57 | PC.NURSE ---
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 RN reassured patient that they are at [facility] and in a safe environment, RN was able to re-orient patient to place and situation. RN administered PO ativan Per EMAR and patient home medication list.
[2025-09-13 01:00] VITALS: BP 153/67; PULSE 76; RESP 18; TEMP 36.3; O2SAT 97
--- NOTE | 2025-09-13 02:37 | PC.NURSE ---
Addendum entered by Emory Hernández RN 09/13/25 04:13: Patient is still agitated, waking up and attempting to get out of bed every 7-10 minutes. Addendum entered by Emory Hernández RN 09/13/25 03:59: Dr Crisostomo ordered 5mg IM of zyprexa, Patient tolerated well, (view EMAR for times) patient is currently asleep. 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 Patient has moments of 2-3 minutes of calm but will immediately attempt to remove Valdovinos and get out of bed. Addendum entered by Emory Henrández RN 09/13/25 03:09: Adam Crisostomo, gave verbal order to pause IVF, and cardiac telemetry , poultry process worker aware, Patient is still agitated, RN will update PRN if agitation continues to escalate. 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 patient attempted to remove valdovinos, and IV, patient removed cardiac telemetry. poultry process worker aware and MD notified.
[2025-09-13] MEDS: OLANZapine 10 MG VIAL 5 MG IM (03:34)
--- NOTE | 2025-09-13 09:02 | P.PN_ITS ---
Subjective Subjective Interval history: S: She states she remembers me but is minimally communicating. She was somewhat anxious in appearance. Overnight events: She has become confused, consistent with delirium. O: VSS. Confused, anxious. NAD, alert and oriented. Fluent speech. Lungs are clear, normal rate and effort. Heart is regular, no murmur gallop or rub. Abdomen is soft, non distended. Extremities are free of edema. Mendenhall MICRO: Blood and urine cultures remained negative. Imaging/EC/11 CT KIDNEY URETER BLADDER (KUB) IMPRESSION: 1. A very large distal ureteral stone obstructs the right ureter resulting in severe right hydronephrosis. 2. There is a small amount of gas present in the right renal pelvis, potentially from recent instrumentation. Cannot exclude infection from a gas-forming organism. 3. Bilateral nephrolithiasis. 4. Cholelithiasis. 5. Severe diverticulosis. 6. Remote hysterectomy. ? 09/12 ECG Interpretive Statements: Normal sinus rhythm Possible Left atrial enlargement Right bundle branch block ? A/P: 1. Acute metabolic encephalopathy, new and active. Likely added to her acute events, hospital encounter, and change in environment. 2. Ureteral Obstruction with Hydronephrosis, improved with stenting. Large 2 cm distal right ureteral stone causing severe hydronephrosis following stent dislodgement. Stent displacement occurs in 2.8% of cases with stents. Successful stent exchange performed to restore drainage. -Monitor urine output ? 3. Hypertension Elevated blood pressures ranging 148-192 mmHg systolic. Currently on metoprolol 25mg. -Monitor blood pressure trends -Continue metoprolol 25mg Discharge plan will depend on her mental status and delirium. We will attempt to open blinds, reinforce orientation and see how she does want her daughter arrives. ? 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 Breast cancer Surgical History (Updated 09/12/25 @ 14:33 by Yanni Quintero) History of hysterectomy History of lumpectomy Family History (Updated 09/12/25 @ 14:34 by Yanni Quintero) Father Lung cancer Heart attack Mother Stroke Social History (Updated 09/12/25 @ 14:36 by Yanni Quintero) household members: none lives independently: Yes pets and animals: No Smoking Status: Former smoker Assessment & Plan Time-Based Coding :: [TOTAL MINUTES] spent with patient and on the chart (including review of chart, obtaining history, exam, reviewing outside data, placing orders, documenting exam and treatment plan, and counseling patient) on [DATE]. Quality VTE Deep Vein Thrombosis/Pulmonary Embolism Present on Admission: No
--- NOTE | 2025-09-13 09:28 | PC.NURSE ---
Day shift: Pt confused this AM. Wanting to get OOB and can get OOB if not assisted and reoriented to situation.. Not allowing staff to put gown on (has no clothes on). Bed alarm is on. Call light in reach and door to room open. Pt is in view room for safety. Dr Workman is aware of Pt's confusing. Abdirashid remains patent.
--- NOTE | 2025-09-13 11:52 | PM.DS.1 ---
History of Present Illness History of Present Illness Chief complaint: per daughter, obstruction of right kidney Narrative: CC: Nausea, vomiting, and concern for urinary obstruction ? HPI:? ? This is an 85-year-old female with a history of bilateral nephrolithiasis, chronic bilateral hydronephrosis, and prior ureteral stent placement, who presented to the ED with nausea and vomiting. She was afebrile and hemodynamically stable. CT KUB demonstrated a 2 cm distal right ureteral stone with resultant upstream severe hydronephrosis. She gets her urology care at [facility] by Dr. Silvestre Baldwin. She has had bilateral lithotripsies has a history of right nephrostomy which has been removed and a ureteral stent that was placed 4 days ago. The ureteral stent came out last night. Today the patient is having nausea and vomiting. Urology was consulted, and the patient underwent cystoscopy with right ureteral stent exchange and bladder decompression. She was then admitted post-operatively to the floor in stable condition for monitoring, continued management, and evaluation for definitive outpatient urologic care. ? History collected from patient's daughter Cynthia Méndez: This spring the patient started having nausea and weight loss causing concern for her daughter, who is a family medicine physician. She developed post prandial discomfort in June but declined to seek care. In early July she went to the ER at [facility] where she was discovered to have bilateral obstructing stones at 2 and 3 cm respectively. She had bilateral stents placed while awaiting laser ablation. The left stone was ablated in early August, then two weeks later the right stone was ablated. She continued to have severe nausea after the right ablation lasting until 09/05 when she was brought by EMS to the [facility] ED. She was found to have 8cm steinstrasse obstructing the right ureter. On 09/05 a nephrostomy was placed until ablation could be completed 09/09. The patient was discharged 09/10 and brought to [place] to stay with her daughter for recovery. The stent was accidentally removed on 09/11. On 09/12 the patient developed nausea and vomiting, which are her typical symptoms of ureteral obstruction, so she was brought to [facility] emergency room. ? 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 Surgical Hx: Hysterectomy, remote Lumpectomy ~2014 Cystoscopy, multiple Ureteral stent x4 Ureteral stone ablation x3 ? Medications: metoprolol 25mg, timolol eye drop Allergies: NKDA Social Hx: She lives alone in [place], no pets. 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 Social drinking. No other substance use reported. Family Hx:? Mother: Stroke, Father: [place], lung cancer ? ROS: negative other than as noted in HPI ? Imaging/EC/11 CT KIDNEY URETER BLADDER (KUB) IMPRESSION: 1. A very large distal ureteral stone obstructs the right ureter resulting in severe right hydronephrosis. 2. There is a small amount of gas present in the right renal pelvis, potentially from recent instrumentation. Cannot exclude infection from a gas-forming organism. 3. Bilateral nephrolithiasis. 4. Cholelithiasis. 5. Severe diverticulosis. 6. Remote hysterectomy. ? 09/12 ECG Interpretive Statements: Normal sinus rhythm Possible Left atrial enlargement Right bundle branch block ? Labs reviewed and notable for: -Blood culture and urine culture pending -High: WBC (15.1), platelets (486), BUN (26), BUN/Creatinine Ratio (21), Alkaline Phosphatase (138) -Low: Hemoglobin (11.9), lymphocytes % (10.8%), eGFR (55) -UA with trace LE, few (2-10) bacteria, WBC (5-10) ? ? A/P: 85-year-old female with bilateral nephrolithiasis and chronic hydronephrosis presenting with nausea and vomiting following spontaneous ureteral stent dislodgement. CT imaging confirms 2 cm distal right ureteral stone with severe hydronephrosis. Patient underwent successful cystoscopy with right ureteral stent exchange and bladder decompression. She is now admitted for continued management and evaluation for definitive outpatient urologic care. ? 1. Ureteral Obstruction with Hydronephrosis (stented), improved. Large 2 cm distal right ureteral stone causing severe hydronephrosis following stent dislodgement. Stent displacement occurs in 2.8% of cases with stents. Successful stent exchange performed to restore drainage. -Monitor urine output -Hydromorphone 0.5 mg IV Q2 PRN for pain management -Post-operative monitoring -Discharge planning with urology follow-up, patient and daughter indicate they prefer outpatient care with [facility] ? 2. Hypertension, stable. Elevated blood pressures ranging 148-192 mmHg systolic. Currently on metoprolol 25mg. -Monitor blood pressure trends -Continue metoprolol 25mg 3. Mild metabolic encephalopathy, new and active. ? DVT Prophylaxis: -SCDs. ? Code Status: -DNR/DNI. ? Hospital Course: She did well after the procedure. She did develop some delirium overnight but her daughter was comfortable taking her home on the day of discharge. There was no evidence of infection, no fever or pain. A follow up with [facility] and this will be expedited for further care. Mendenhall removed before discharge. DC MIPS [N], the patient has documentation of a left ventricle ejection fracture less than or equal to 40%, or moderately or severely reduced left ventricle systolic function. [N], the patient has a history of heart transplant or left ventricular assist device (LVAD). [N], the patient was prescribed an LACY inhibitor at discharge or is already being taken. The patient was not prescribed an LACY-inhibitor because of the following exception: NA. [N], the patient was prescribed Metoprolol succinate, bisoprolol, or carvedilol at discharge. The patient was not prescribed Metoprolol succinate, bisoprolol, or carvedilol at discharge because of the following exception: NA. Discharge Providers Provider Date of admission: 09/12/25 08:43 Discharge Date: 09/13/25 Consults: 09/12/25 08:27 Consult to Urology Stat Comment: Consulting Provider: Anthony Sanchez Reason for consultation: r hydro and stone Has provider been notified: Yes Discharge provider: Dionicio Workman MD Summary Hospital Course Discharge Diagnosis: 1. Nephrolithiasis and ureteral obstruction. Hospital Course: See above. Status at Discharge Cognitive/behavioral status at discharge: confused Functional status at discharge: independent ambulation Overall status at discharge: patient is progressing back to baseline Time Spent with Patient Time spent: Greater than 30 minutes Exam Vital Signs (past 8 hours): Oxygen Delivery Method Room Air Oxygen Flow Rate 0 Narrative Exam Narrative: NAD, mild confusion. Lungs clear CV regular. Abdomen soft, NT. No edema. 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 Close FU with [facility] (Dr. Sanchez). Discharge Plan Discharge Plan Patient Disposition: Home Provider Discharge Comment: Stable for discharge home, met with daughter he was comfortable taking her home. Discharge orders & Medications Prescriptions: Continued timolol maleate 0.5 % drops EYE-BOTH metoprolol succinate 25 mg tablet extended release 24 hr 25 mg PO DAILY Diet/Activity/Treatments Diet: Regular Activity: As tolerated. Skin/Wound/Dressing Care Report to your healthcare provider any signs of infection, such as:: chills, fever, night sweats and increased pain Visit Report/Discharge Packet Instructions: Kidney Stones -- Adult, DI for Cystoscopy, How to Care for Your Mendenhall Catheter -- Female Stand Alone Forms: Patient Portal/API Quality VTE Deep Vein Thrombosis/Pulmonary Embolism Present on Admission: No
--- NOTE | 2025-09-13 12:52 | CM.DANOTE ---
DCP Assessment note pt is an 85yo F here after emergent stent placement yesterday with urology. hx of kidney obstruction. per chart review/RN, had a rough night. was oriented only to self occasionally. OOB with nursing. per provider, can dc home today if family agrees to take her home. MIXER AND SCALER met with dtr in room. pt sleeeping. dtr reports she recently moved pt from [place] to [facility] to live with her. has her own MIL appt spce in their house. ambulates indep but has a walker if needed. recent cog decline over past few months. looking for more permanent LTC plan- denies LTC planning resources from this MIXER AND SCALER. wants new PCP with Dr. yWatt- MIXER AND SCALER messaged TCM with updates. dtr manages most IADLs/ADLs for pt at this time. interested in HH once established with PCP. no hx of HH so far. wants all urology f/u to be done here and not with [facility] like done before. denies other DCP/CM questions at this time. MIXER AND SCALER updated provider on dtrs preference to take pt home. P: anticipate dc today with OP f/u. no further CM needs at this time. will continue to follow in case any should arise HALLIE [place]uma Discharge Planning/Care Management CM Discharge Assessment Start: 09/12/25 08:49 Freq: Status: Active Protocol: Document 09/13/25 12:50 SL (Rec: 09/13/25 12:51 SL [id number]) Discharge Planning Assessment Assigned Discharge HALLIE Ruiz Lacrosse Coach Provider none Insurance Medicaid,Medicare DPOA/Assigned Cynthia, dtr Designee Name Contact Information [phone] Advance Directives? No History Provided By Patient Prior Living Apartment/Condo Arrangements Household Members family,children Type of Relies on Others transporation used prior to admit Independent with ADL No 's Is patient alert and No oriented? DME Already Rented / FWW / Walker Owned Discharge Plan Home Referrals Initiated None needed Whiteboard Updated Yes in Patient Room with name and ext. # of Sales Enablement Consultant Review Status In Process Please Provide Date 09/13/25 Initial DC Assessment Was Performed Next Review Type Continued Stay Review
--- NOTE | 2025-09-13 13:29 | PC.NURSE ---
Day shift: Left unit at approx 1300. Mendenhall removed at approx 1255. Paperwork signed by PATITO (Pt's Daughter). Pt was present for the teachings and was also involved. Pt has all personal belongings. No new MD scripts.
== END 2025-09-13 13:13 | disposition home or self-care (01) | DRG 659 ==
LOC: ED 08:40 → AC 08:44
PROVIDERS: Urology; Admitting Provider Hospitalist; Emergency Provider Emergency Medicine; Referring Provider Emergency Medicine; Visit Provider Hospitalist
PROC: 0T768DZ Dilation of Right Ureter with Intraluminal Device, Via Natural or Artificial Opening Endoscopic (ICD-10-PCS; principal; 2025-09-12 12:45)
DX: N13.2 Hydronephrosis with renal and ureteral calculous obstruction (principal); G93.41 Metabolic encephalopathy; I10 Essential (primary) hypertension; Z82.49 Family history of ischemic heart disease and other diseases of the circulatory system; H35.30 Unspecified macular degeneration; Z85.3 Personal history of malignant neoplasm of breast; Z87.891 Personal history of nicotine dependence; Z66 Do not resuscitate
CPT/HCPCS: 36415; 74018; 74176; 76000; 80053; 81001; 83605; 83690; 85025; 87040; 87086; 93005; 96361; 96365; 96375; 99284; C2617; J0131; J1100; J1171; J2359; J2405; J2543; J2704; J3010; J3375; J3490; J7030; J7050; J7120; Q9967

== ENCOUNTER → 2025-09-25 16:41 | Outpatient (CLI) | payer MEDICARE, MEDICAID, SELFPAY ==
[2025-09-15 13:15] VITALS: BMI 21.6
== END ==
PROVIDERS: PCP Family Medicine; Visit Provider Urology
DX: R39.9 Unspecified symptoms and signs involving the genitourinary system (principal)
CPT/HCPCS: 87086

== ENCOUNTER 2025-10-03 12:25 | Day surgery (SDC) | payer MEDICARE, MEDICAID, SELFPAY ==
[2025-09-15 13:15] VITALS: BMI 21.6
[2025-09-25 09:08] VITALS: BMI 20.2
[2025-10-03 12:56] VITALS: BP 139/73; PULSE 80; RESP 16; TEMP 37.4; O2SAT 98
[2025-10-03] MEDS: ACETAMINOPHEN 325 MG TABLET 650 MG PO (13:11)
[2025-10-03] MEDS: LACTATED RINGERS 1,000 ML 21 ML IV (13:13)
--- NOTE | 2025-10-03 14:03 | PM.PREOP ---
Pre-operative Note COVID-19 COVID-19 status: Not tested Interval Note History & Physical reviewed/Exam performed by Physician: Yes Changes to H&P: No
--- NOTE | 2025-10-03 15:04 | SUR.OPER ---
Lithotomy on padded OR bed, head on pillow, arms secured on padded arm boards at <90 degrees abduction. Legs secured in padded yellow fins stirrups.
--- NOTE | 2025-10-03 15:14 | P.OP_ITS ---
Operative Date/Time/Diagnoses Date of procedure: 10/03/25 Time of procedure: 14:30 Pre-op diagnosis: Right ureteral calculus Post-op diagnosis: same Procedure & Clinicians Procedure: Cystoscopy Right retrograde ureteropyelogram Right ureteroscopy, laser lithotripsy Right ureteral stent exchange Intraoperative interpretation of fluoroscopic images, total time < 1 hour Same procedure(s) as scheduled: Yes Indications: 85 y/o F w/ h/o nephrolithiasis and recent Urological surgeries for management of her urolithiasis (this was performed at [facility] ([place], [place]) in [place], [place], do not have any of these records, not sure if URS or ESWL). Nevertheless, her right ureteral stent with strings was inadvertently removed early and she developed severe nausea/vomiting. She was brought to ER for evaluation by her daughter. This was notable for a WBC of 15.1, sCr of 1 and a UA consistent with either recent Urological instrumentation or concern for a UTI. Her CT KUB was notable for a 2cm distal right ureterolith with resultant upstream severe hydroureteronephrosis and gas within her right renal pelvis. Therefore, she underwent a cystoscopy with right ureteral stent placement. Discussed the need to remove the large stone within her right distal ureter as well as her non- obstructing right nephroliths. Discussed treatment options to include a cys toscopy with right ureteroscopy, laser lithotripsy and right ureteral stent placement vs a right ESWL (not recommended as her hip bone is in the way). Discussed risks of the procedure to include but not limited to pain, bleeding, infection, injury to urethra/bladder/ureter, inability to access the ureter requiring discussion with Interventional Radiology regarding a possible ureteral stent placement in an antegrade fashion vs a possible nephroureteral stent and/or percutaneous nephrostomy tube, urinary tract infection, inability to remove all of the stone in one setting, need for emergent open repair of bladder and/or ureter, need for multiple ureteroscopic interventions necessary to render the patient stone free Surgeon: Anthony Sanchez Assisted?: No Anesthesia Type: General Operative Notes Findings: Large right distal ureterolith, no right nephroliths Closure Type: not applicable Specimen(s): other (right ureteral calculus) Applied: none Estimated Blood Loss (mL): 2 Blood products transfused: none Procedure in detail: Patient was identified in the preoperative holding area and consent confirmed. She was then brought to the operating room where general anesthesia was induced.? She was placed in the low lithotomy position. She was then prepped and draped in the usual sterile fashion. A surgical timeout was conducted and all were in agreement. Access to the bladder was obtained via a 30 degree cystoscope.? Complete cystoscopy was then performed and no concerning bladder masses or lesions were appreciated.? Bilateral ureteral orifices were easily identified and noted to be orthotopic in nature.? The previously placed right ureteral stent was easily externalized and a 0.035 sensor tip ureteral guidewire was advanced through the ureteral stent and into the right renal pelvis. A semirigid ureteroscope was easily advanced into her right ureter alongside the guidewire and to the level of the stone.? A 200 micron laser fiber was then utilized to perform laser lithotripsy.? All stone fragments >1mm in size were removed via the stone basket and sent for chemical analysis.? Due to concern of small right nephroliths, the semirigid ureteroscope was removed and a 12/14Fr ureteral access sheath was advanced over the guidewire and into the right renal pelvis. The ureteral guidewire and inner obturator were then removed and a flexible ureteroscope was advanced through the access sheath and into the right renal collecting system. Complete pyeloscopy was then performed and no uroliths were appreciated. She had several instances of submucosal calcifications, however, no definitive stones were appreciated. The ureteral guidewire was then advanced through the ureteroscope and into the right renal collecting system. The ureter was then directly visualized upon removal of the ureteroscope and ureteral access sheath and noted to be stone free.? A 5Fr ureteral catheter was then advanced over the guidewire and into the right proximal ureter. A retrograde ureteropyelogram was then performed and no contrast extravasation was appreciated. The ureteral catheter was then removed and a 6Fr x multi-length JJ ureteral stent with strings was then advanced over the ureteral guidewire.? Upon removal of the guidewire, a good curl was noted in the right renal pelvis and the bladder using fluoroscopy.? The bladder was then drained.? Anesthesia was reversed, she was extubated in the OR and transferred to the PACU in stable condition for recovery. Complications: none Post-operative Condition: stable Disposition: PACU Plan for aftercare: Discharge home from PACU. Will return to Urology clinic in 3 months for a RBUS and stone analysis review.
[2025-10-03 15:15] VITALS: BP 145/76; PULSE 105; RESP 18; TEMP 37.2; O2SAT 100
--- NOTE | 2025-10-03 15:18 | DI.RAD.S_ITS ---
PROCEDURE: XR ABDOMEN 1V INDICATIONS: RIGHT STENT PLACEMENT TECHNIQUE: 3 intra-operative images acquired by the Urology service. COMPARISON: [facility], [place], XR ABDOMEN 1V, 09/12/2025, 11:31. FINDINGS/IMPRESSION: Intraoperative views during right ureteral stent placement. Hydronephrosis is present. Please refer to operative note for further details. Dictated by: Paolo Singh M.D. on 10/03/2025 at 16:40 Approved by: Paolo Singh M.D. on 10/03/2025 at 16:41
[2025-10-03 15:22] VITALS: BP 137/67; PULSE 105; RESP 18; TEMP 37.1; O2SAT 98
[2025-10-03 15:27] VITALS: BP 140/70; PULSE 80; RESP 16; TEMP 37.2; O2SAT 98
[2025-10-03 15:32] VITALS: BP 140/64; PULSE 95; RESP 20; TEMP 37.2; O2SAT 96
[2025-10-03 15:42] VITALS: BP 136/69; PULSE 96; RESP 20; TEMP 37.1; O2SAT 96
== END 2025-10-03 16:10 | disposition home or self-care (01) ==
PROVIDERS: PCP Family Medicine; Referring Provider Family Medicine; Visit Provider Urology
PROC: (CPT 52356; principal; 2025-10-03 14:00)
DX: N20.1 Calculus of ureter (principal); N13.30 Unspecified hydronephrosis
CPT/HCPCS: 52356; 74018; 76000; 82365; C2617; J0689; J1100; J2405; J2704; J3010; J7120; Q9967